=== PATIENT | male | born 1980 | race Caucasian/White ===

== ENCOUNTER 2022-08-27 08:04 | Emergency (ER) | payer SELFPAY ==
[2022-08-27 08:13] VITALS: BP 130/82; PULSE 92; RESP 16; TEMP 36.9; O2SAT 99; BMI 23.8
--- NOTE | 2022-08-27 08:22 | DI.US.S_ITS ---
PROCEDURE: US SCROTUM INDICATIONS: L testicular pain TECHNIQUE: Real-time scanning was performed of the scrotum and testicles, with image documentation. Color and pulse Doppler interrogation was performed of both testicles. COMPARISON: None. FINDINGS: Right: Testicle is normal in size at 4.7 X 2.0 X 3.0 cm, and homogenous in echotexture. Epididymis is normal in overall size and morphology. There is a 4 mm simple appearing cyst adjacent to the superior aspect of the epididymis. No hydrocele or varicoceles. Overlying scrotal skin is normal in thickness. Left: Testicle is normal in size at 4.4 X 2.6 X 3.2 cm, and homogeneous in echotexture. Epididymis is normal in overall size and heterogeneous. On Doppler ultrasound, there is no increased vascularity involving the epididymis. Mildly increased vascularity is, however, noted in the adjacent .. A 2 mm epididymal cyst or spermatocele in the epididymal head. No hydrocele or varicoceles. Overlying scrotal skin is normal in thickness. Doppler: Color and pulse Doppler demonstrate normal and symmetric arterial flow in both testicles. IMPRESSION: 1. The left epididymis is heterogeneous in echotexture. Doppler ultrasound demonstrates no increased vascularity of the epididymis. There is, however, subtle increased vascularity in the adjacent soft tissue. The findings suggest the possibility of resolving epididymitis. Recommend clinical correlation. 2. Normal testicles bilaterally. No findings to suggest testicular torsion. No testicular mass. 3. A 2 mm left epididymal cyst. 4. A 4 mm simple appearing cyst is noted adjacent to the superior aspect of the right epididymis. The result was discussed with Dr. Cortes. Dictated by: Ana Panda M.D. on 08/27/2022 at 9:47 Approved by: Ana Panda M.D. on 08/27/2022 at 10:01
[2022-08-27 08:32] LABS: Bacteria Urine None Seen; Culture Indicated Urine Specimen Cultured; RBC Urine 10-30/HPF (0-5/HPF); Squamous Epithelial Cell Urine 1-5 /HPF (0-5/HPF); WBC Urine 5-10/HPF (0-5/HPF)
--- NOTE | 2022-08-27 08:33 | ED_ITS ---
HPI - General Adult General Chief complaint: Urogenital-Male Stated complaint: sent by [facility] Testicular torsion Time Seen by Provider: 08/27/22 08:17 Source: patient Mode of arrival: Ambulatory History of Present Illness HPI narrative: Patient is a 42-year-old male who is here for evaluation of left-sided testicular pain and swelling. He states the symptoms have been going on for the past 14 hours or so. He denies any trauma. No specific incident that would have caused the discomfort. He states that it was when he sat down several hours ago when he started to have the pain. It has not worsened since then but has not improved. No skin changes over the area. No history of STDs. Is circumcised. Has had a new sexual partner approximately a month and a half ago. He is no abdominal pain. He states that a day or so ago he did have URI like symptoms with fatigue and body ache in his sore throat but those have all completely resolved. Has not tried anything for the symptoms prior to arrival. He did go to the walk-in clinic. A urinalysis was performed. It was cloudy and did have blood and leukocyte esterase. He was sent to the emergency department for further evaluation. Related Data Previous Rx's Medication Instructions Recorded cephalexin 500 mg capsule 500 mg PO QID 7 days #28 caps 08/27/22 Allergies Allergy/AdvReac Type Severity Reaction Status Date / Time No Known Drug Allergies Allergy Verified 08/27/22 08:19 Review of Systems Constitutional Constitutional: Reports system reviewed and no additional complaints, except as documented Gastrointestinal Gastrointestinal: Reports system reviewed and no additional complaints, except as documented Genitourinary Genitourinary: Reports system reviewed and no additional complaints, except as documented Integumentary/Breasts Skin/Breast: Reports system reviewed and no additional complaints, except as documented Neurologic Neurologic: Reports system reviewed and no additional complaints, except as documented Patient History Social History Smoking Status: Current every day smoker Smoking Status: Current every day smoker tobacco type: vaping alcohol intake frequency: 0-2 drinks per day Alcohol type: beer Substance Use Type: does not use Exam Initial Vital Signs Initial Vital Signs: Vital Signs Temperature 98.5 F 08/27/22 08:13 Pulse Rate 92 H 08/27/22 08:13 Respiratory Rate 16 08/27/22 08:13 Blood Pressure 130/82 08/27/22 08:13 Pulse Oximetry 99 08/27/22 08:13 Oxygen Delivery Method Room Air 08/27/22 08:13 Const General: cooperative, comfortable and No ill appearing HENMT Head: normal to inspection and normocephalic GI Inspection: normal to inspection Palpation: soft, No firm and No tender External: circumcised Penis: normal penis Scrotum: scrotum normal Other: Left-sided testicular swelling with some tenderness. Epididymis is tender as well. No hernia felt. Neuro General: patient alert, patient awake and moves all extremities Extrem General: normal to inspection and capillary refill normal Psych Appearance: grossly normal and well kempt Course Orders Ordered: ED Orders 08/27/22 08:22 US scrotum Stat 08/27/22 08:26 Chlamydia Gonorrhea PCR -URINE Stat Urine Culture Stat Urine Microscopic Stat Vital Signs Vital signs: Vital Signs - 8 hr 08/27/22 08:13 Temperature 98.5 F Pulse Rate 92 H Respiratory Rate 16 Blood Pressure 130/82 Pulse Oximetry 99 Oxygen Delivery Method Room Air Medical Decision Making Lab Data Lab results reviewed: Yes I reviewed the patient's lab results. Labs: Lab Results 08/27/22 08/27/22 Range/Units 08:26 08:26 Urine RBC 10-30/hpf H (0-5/HPF) Urine WBC 5-10/hpf H (0-5/HPF) Ur Squamous Epith Cells 1-5 /hpf (0-5/HPF) Urine Bacteria None seen (None) Ur Culture Indicated? Specimen cultured Ur Chlamydia DNA (PCR) Not detected N gonorrhoeae DNA (PCR) Not detected Imaging Data scrotal US: Radiologist's Impression: PROCEDURE:? US SCROTUM ? INDICATIONS:? L testicular pain ? TECHNIQUE:? Real-time scanning was performed of the scrotum and testicles, with image documentation.? Color and pulse Doppler interrogation was performed of both testicles.? ? COMPARISON:? None. ? FINDINGS:? ? Right:? Testicle is normal in size at 4.7 X 2.0 X 3.0 cm, and homogenous in echotexture.? Epididymis is normal in overall size and morphology.? There is a 4 mm simple appearing cyst adjacent to the superior aspect of the epididymis.? No hydrocele or varicoceles.? Overlying scrotal skin is normal in thickness.? ? Left:? Testicle is normal in size at 4.4 X 2.6 X 3.2 cm, and homogeneous in echotexture.? ? ? Epididymis is normal in overall size and heterogeneous.? On Doppler ultrasound, there is no increased vascularity involving the epididymis.? Mildly increased vascularity is, however, noted in the adjacent ..? ? A 2 mm epididymal cyst or spermatocele in the epididymal head.? No hydrocele or varicoceles.? Overlying scrotal skin is normal in thickness.? ? Doppler:? Color and pulse Doppler demonstrate normal and symmetric arterial flow in both testicles.? ? IMPRESSION:? ? 1. The left epididymis is heterogeneous in echotexture.? Doppler ultrasound demonstrates no increased vascularity of the epididymis.? There is, however, subtle increased vascularity in the adjacent soft tissue.? The findings suggest the possibility of resolving epididymitis.? Recommend clinical correlation. ? ? 2. Normal testicles bilaterally.? No findings to suggest testicular torsion.? No testicular mass. ? ? 3. A 2 mm left epididymal cyst. ? ? 4. A 4 mm simple appearing cyst is noted adjacent to the superior aspect of the right epididymis. ? ? The result was discussed with Dr. Cortes. [facility] Narrative Medical decision making narrative: Patient's GC and chlamydia are negative. No inguinal hernias felt. His discomfort is specifically located on the left hemiscrotum. Risks some redness over the scrotum. Ultrasound does not show any signs of torsion. It is not consistent with epididymitis. His urinalysis does have white blood cells and bacteria and he states a couple days ago he did feel like he had UTI like symptoms. Plan will be is to treat him for UTI. A urine culture is pending. Was informed of this. Also considered cellulitis. Antibiotics for the UTI should help with any potential cellulitis. Also considered orchitis however the ultrasound is not consistent with this. Prescription for antibiotics was sent to the pharmacy of his choice. He was given return precautions. He expressed understanding and agreement. Discharge Plan Departure Patient Disposition: Home Clinical Impression: Urinary tract infection, Pain in left testicle Instructions: DI for Urinary Tract Infection (UTI) Activity Restrictions/Additional Instructions: I do recommend that you take the antibiotics as directed. [facility] Also recommend supportive clothing and you can also ice the area. There was a urine culture pending at the time of your discharge. We will contact you if we need to change any antibiotics. Return to the emergency department for new or worsening symptoms. Prescriptions: New cephalexin 500 mg capsule 500 mg PO QID 7 Days Qty: 28 0RF Referrals: Miscellaneous,Doctor, MD [Primary Care Provider] - Stand Alone Forms: Patient Portal/API
[2022-08-27 09:56] LABS: Urine Chlamydia NOT DETECTED; Urine N gonorrhoeae NOT DETECTED
== END 2022-08-27 10:26 | disposition home or self-care (01) ==
PROVIDERS: Emergency Provider Emergency Medicine
DX: N39.0 Urinary tract infection, site not specified (principal); N50.812 Left testicular pain
CPT/HCPCS: 76870; 81015; 87077; 87086; 87186; 87491; 87591; 99283